=== PATIENT | male | born 1940 | race Caucasian/White ===

== ENCOUNTER 2017-08-01 08:33 | Outpatient (CLI) | payer MEDICARE ==
[2017-08-01 09:34] LABS: Anion Gap 10 mmol/L (10-20); BUN (Urea Nitrogen) 23 mg/dL (8.4-25.7); Calc. Creatinine Clearance 0 mL/min (70-130); Carbon Dioxide 31 mmol/L (23-31); Chloride 100 mmol/L (98-107); Estimated GFR-MDRD 44; Potassium 4.1 mmol/L (3.5-5.1); Sodium 137 mmol/L (136-145)
[2017-08-01 09:35] LABS: Calcium 9.8 mg/dL (7.8-10.44); Glucose 214 mg/dL (83-110)
--- NOTE | 2017-08-01 11:42 | CT ---
CT ANGIO CHEST WITH AND WITHOUT IV CONTRAST AND 3D POSTPROCESSING: Date: 08/01/17 HISTORY: Atrial fibrillation. FINDINGS/IMPRESSION: Please see truck engine technician's report for coronary and cardiac findings. There are vascular calcifications without evidence of aneurysmal dilatation of the thoracic aorta. No pericardial or pleural effusions are seen. The visualized lung lomeli are unremarkable. There is asc ites in the visualized portions of the abdomen. POS: JOSE
[2017-08-01] MEDS ORDERED: Iopamidol 370 76% 100 ML VIAL ONE (13:21)
== END 2017-08-01 08:34 | disposition home or self-care (01) ==
LOC: CT 08:33
PROVIDERS: ATTEND Internal Medicine Cardiovascular Disease
DX: I48.91 Unspecified atrial fibrillation (principal); I70.0 Atherosclerosis of aorta; R18.8 Other ascites
CPT/HCPCS: 36415; 71275; 80048

== ENCOUNTER 2017-08-05 10:41 | Day surgery (SDC) | payer MEDICARE ==
[2017-08-05 10:27] LABS: #Basophils 0.1 thou/uL (0.0-0.2); #Eosinphils 0.8 thou/uL (0.0-0.7); #Lymphocytes 1.8 thou/uL (1.20-3.40); #Monocytes 0.6 thou/uL (0.11-0.59); %Basophils 1.7 % (0.0-1.0); %Eosinophils 11.3 % (0.0-10.0); %Lymphocytes 24.8 % (21.0-51.0); %Monocytes 7.8 % (0.0-10.0); %Neutrophils 54.4 % (42.0-75.0); Hemoglobin 14.5 g/dL (14.0-18.0); Mean Corpuscular Hemoglobin 34.1 pg (27.0-31.0); Mean Platelet Volume 8.1 fL (7.4-10.4); Platelet Count 197 thou/uL (130-400); RBC Distribution Width 11.9 % (11.5-14.5); Red Blood Cell (RBC) Count 4.24 mill/uL (4.70-6.10); White Blood Cell (WBC) Count 7.4 thou/uL (4.8-10.8)
[2017-08-05 10:34] LABS: INR-International Normal Ratio 1.3; PTT 33.7 SEC (22.9-36.1); Prothrombin Time 16.1 SEC (12.0-14.7)
[2017-08-05 10:46] LABS: Anion Gap 16 mmol/L (10-20); BUN (Urea Nitrogen) 16 mg/dL (8.4-25.7); Calc. Creatinine Clearance 68 mL/min (70-130); Calcium 9.9 mg/dL (7.8-10.44); Carbon Dioxide 26 mmol/L (23-31); Chloride 102 mmol/L (98-107); Estimated GFR-MDRD 54; Glucose 164 mg/dL (83-110); Potassium 4.1 mmol/L (3.5-5.1); Sodium 140 mmol/L (136-145)
[2017-08-05] MEDS ORDERED: Heparin 10,000 UNITS/1 ML VIAL ONE ×2 (12:54→13:37)
[2017-08-05] MEDS ORDERED: Lidocaine 1% (PF) 30 ML VIAL ONE (13:07)
[2017-08-05] MEDS ORDERED: Phenylephrine HCL 10 MG/ML VIAL ONE (13:19)
[2017-08-05] MEDS ORDERED: Fentanyl 100 MCG/2 ML VIAL ONE ×2 (13:19→16:08)
[2017-08-05] MEDS ORDERED: Propofol 1,000 MG/100 ML VIAL IV ONE (13:19)
[2017-08-05] MEDS ORDERED: Furosemide 40 MG/4 ML VIAL ONE (13:37)
[2017-08-05] MEDS ORDERED: Protamine Sulfate 50 MG/5 ML VIAL ONE (13:37)
--- NOTE | 2017-08-05 13:37 | EKG ---
Test Reason : PREOP Blood Pressure : / mmHG Vent. Rate : 122 BPM Atrial Rate : 244 BPM P-R Int : 000 ms QRS Dur : 108 ms QT Int : 380 ms P-R-T Axes : 000 -55 147 degrees QTc Int : 541 ms Atrial tachycardia with 2:1 A-V conduction Left anterior fascicular block Anterolateral infarct , age undetermined Abnormal ECG Confirmed by CHAIM RAMOS ([id number]) on 08/05/2017 1:37:20 PM Referred By: LUCINA Confirmed By:CHAIM RAMOS
[2017-08-05] MEDS ORDERED: Glycopyrrolate 0.2 MG/ML 5 ML SYRINGE ONE (14:30)
[2017-08-05] MEDS ORDERED: Propofol 200 MG/20 ML VIAL ONE (14:30)
[2017-08-05] MEDS ORDERED: Heparin 30,000 units/30 ml VIAL ONE (14:30)
[2017-08-05] MEDS ORDERED: Isoproterenol 0.2 MG/1 ML AMP ONE (14:41)
[2017-08-05] MEDS ORDERED: Ondansetron HCl/PF 4 MG/2 ML Vial IVP PRN ×2 (15:46→15:48)
[2017-08-05] MEDS ORDERED: Promethazine HCl 25 MG/ML VIAL IM/IV PRN (15:46)
[2017-08-05] MEDS ORDERED: Non-Formulary Medication 1 EACH PO PRN (15:46)
[2017-08-05] MEDS ORDERED: Acetaminophen 325 MG TAB PO PRN (15:48)
[2017-08-05] MEDS ORDERED: diphenhydrAMINE 25 MG CAP PO PRN (15:48)
[2017-08-05] MEDS ORDERED: Temazepam 15 MG CAP PO PRN (15:48)
[2017-08-05] MEDS ORDERED: Bisacodyl 5 MG TAB PO PRN (15:48)
[2017-08-05] MEDS ORDERED: Mag-Al 1200 mg/1200 mg/30 ML UDCUP PO PRN (15:48)
[2017-08-05] MEDS ORDERED: traMADol HCl 50 MG TAB PO PRN (15:48)
[2017-08-05] MEDS ORDERED: Bisacodyl 10 MG SUPP PR PRN (15:48)
[2017-08-05] MEDS ORDERED: Nitroglycerin 0.4 MG TAB (25 Tab Bottle) SL PRN (15:48)
--- NOTE | 2017-08-05 16:38 | OP ---
ELECTROPHYSIOLOGY PROCEDURE NOTE DATE OF PROCEDURE: 08/05/2017 PROCEDURE PERFORMED: 1. Comprehensive EP testing with and without left atrial pacing and recording. 2. Transseptal catheterization x2. 3. Intracardiac echocardiography. 4. Three-dimensional mapping and ablation of atrial fibrillation and atrial flutter. 5. Three-dimensional mapping and ablation of atrial tachycardia. CIT[employer] LEAD: Hussein Mayo M.D. ASA CLASSIFICATION: III. ANESTHESIA: General endotracheal anesthesia per Anesthesiology. ADDITIONAL CARDIAC MEDICATIONS: Isoproterenol 5 mcg bolus. Total heparin given 24,000 units. Total protamine given 40 mg. ACUTE COMPLICATIONS: None. TOTAL RADIOFREQUENCY TIME: 21 minutes 47 seconds. TOTAL FLUOROSCOPY TIME: Zero. METHODS: After informed consent was obtained, the patient was taken to the EP lab in fasting state. Both groins were prepped and draped using ultrasound guidance. The right and left femoral veins wer e accessed and wires were inserted into the central venous system. The wires were used to place an 1 1 [place] sheath in the left groin and an 8 [place] sheath in the left groin and two 8 [place] sheaths i n the right groin. 8 [place] sheaths were then all replaced by long 8 [place] sheaths for catheter sta bility. An echo probe was placed in the left groin and advanced to the right atrium and the right ve ntricle for imaging. A circular and ablation catheter placed in right groin and advanced to the righ t atrium and the coronary sinus where a 3D geometry was obtained. A 20-pole catheter was placed in t he left groin and advanced up to the coronary sinus. The proximal end was in the joseph terminalis. The patient was in atrial flutter, pacing within the CTI area confirmed concealed entrainment. Cond uction morphology was consistent with clockwise atrial flutter. Ablation was delivered in this area terminating the flutter and a bidirectional block was confirmed. The patient had incessant atrial ec topy. Transseptal catheterization was performed on two occasions after heparinization. A 3D map was obtained of the left atrium using a port heiden and ablation catheter. Pulmonary veins were isolated at the level of the ostium of all veins. Ectopy remained and mapping showed that the atrial ectopy was coming from the roof of the left atrium just at the atrial ventricular groove, just on the septal jaiden e of the base of the left atrial appendage. Ablation in this area eliminated ectopy and the patient was non-inducible. At the conclusion of the procedure, catheters were withdrawn, sheaths were pulled . Hemostasis was achieved with suture and direct manual closure. RESULTS: 1. Baseline intervals: Flutter cycle length 255 milliseconds, QRS duration 115 milliseconds, QT int erval 320 milliseconds and HV interval 59 milliseconds. 2. Atrial function: The patient was in a clockwise isthmus dependent flutter, which was ablated. T he patient then had empiric vein isolation of the left pulmonary veins because of high risk of atrial fibrillation and had ectopy that was arising from the roof of the left atrium at the base. The left atrial appendage was ablated completely eliminating the ectopy. 3. Ablation details: A total of 21 minutes 47 seconds of RF were delivered with a [employer] Novoa open, irrigated ablation catheter to interrupt the cavotricuspid isthmus, to isolate all 4 pulmonary veins and to ablate the focal atrial tachycardia arising from the roof of the left atrium. IMPRESSION: Successful ablation of CTI flutter along with pulmonary vein antral isolation and an atr ial tachycardia from the left atrial roof. RECOMMENDATION: Oral anticoagulation for the next 3 months.
[2017-08-05 18:40] VITALS: BMI 32.9
[2017-08-05] MEDS: metFORMIN 500 MG TAB PO SCH (18:43)
[2017-08-05] MEDS: Apixaban 5 MG TAB PO SCH (20:09)
[2017-08-05] MEDS: Aspirin 81 mg Enteric Coated Tablet PO SCH (20:11)
[2017-08-05] MEDS: Gabapentin 400 MG CAP PO SCH (20:11)
[2017-08-05] MEDS ORDERED: Prevnar 13-Val Conj/PF 0.5 ML SYRINGE IM ONE (20:15)
[2017-08-06] MEDS ORDERED: Glimepiride 4 MG TAB PO SCH (08:00)
[2017-08-06] MEDS: Gabapentin 400 MG CAP PO SCH (08:16)
[2017-08-06] MEDS: metFORMIN 500 MG TAB PO SCH (08:16)
[2017-08-06] MEDS: Aspirin 81 mg Enteric Coated Tablet PO SCH (08:16)
[2017-08-06] MEDS: Apixaban 5 MG TAB PO SCH (08:17)
[2017-08-06] MEDS ORDERED: Triamterene/Hydrochlorothiazide 37.5 mg/25 mg Tablet PO SCH (09:00)
[2017-08-06] MEDS ORDERED: Ezetimibe 10 MG TAB PO SCH (09:00)
[2017-08-06] MEDS ORDERED: Lisinopril 10 MG TAB PO SCH (09:00)
[2017-08-06] MEDS ORDERED: Furosemide 20 MG TAB PO SCH ×2 (09:00→12:45)
[2017-08-06 11:11] VITALS: BP 122/91; TEMP 97.4
--- NOTE | 2017-08-06 22:29 | DIS ---
REFERRING PHYSICIAN: Cesar Flynn M.D. ADMITTING PROBLEMS: 1. Chronic systolic heart failure with ischemic cardiomyopathy. 2. Single chamber ICD in place. 3. Persistent atrial flutter, s/p CTI ablation and pulmonary vein isolation procedure by Dr. Mayo on 08/05/2017. HOSPITAL COURSE: Mr. Phelps was admitted after his right atrial flutter and pulmonary vein isolation procedure as noted above. He tolerated the procedure well. His typical atrial flutter was terminated with cavotricuspid isthmus ablation, but also additional pulmonary vein isolation was performed. Total 21 minutes of ablation delivered. He tolerated the procedure well, no complications noted. He remained stable overnight. Subsequent day, he is doing well. Minimal hesitation of his urination was noted, but his clearing up now. His post void residuals were less 200 mL. The patient continues on Lasix. PHYSICAL EXAMINATION: VITAL SIGNS: Reveals blood pressure of 120/91, heart rate 99, respiration 20, temperature 97.4 degrees Fahrenheit. The O2 sats are 96% on room air. The groin shows minimal bruising with no significant hematoma. NECK: Veins with hepatojugular reflux positivity only. CHEST: Coarse with no crackles. CARDIOVASCULAR: Heart sounds are regular to rate and rhythm. No murmur or gallop. PLAN: The patient will be discharged home in his usual medication regimen. We are also going to add Protonix 40 mg a day for 30 days, Lasix 40 mg daily for 3 days and as needed after and K-dur 20 mEq daily with lasix. They will then resume his usual Lasix regimen. Routine followup will be requested in 6 weeks. I spent about 45 minutes preparing this discharge note and examining the patient and answering their questions. ALEXEI
== END 2017-08-06 13:44 | disposition home or self-care (01) ==
LOC: CCL 10:41 → 2SW 18:20 → CCL 08-06 13:44
PROVIDERS: ATTEND Internal Medicine Cardiovascular Disease
PROC: 4A023FZ Measurement of Cardiac Rhythm, Percutaneous Approach (ICD-10-PCS; principal; 2017-08-05)
PROC: 02K83ZZ Map Conduction Mechanism, Percutaneous Approach (ICD-10-PCS; 2017-08-05)
DX: I48.4 Atypical atrial flutter (principal); I50.20 Unspecified systolic (congestive) heart failure; I42.9 Cardiomyopathy, unspecified
CPT/HCPCS: 76942; 80048; 85025; 85347 ×2; 85610; 85730; 90670; 93005; 93613; 93623; 93653; 96374; C1731; C1732 ×2; C1769; G0009; 90471; 93010; J1644; J1940; J2001; J2370; J2704; J2720; J3010

== ENCOUNTER 2020-10-15 15:52 | Inpatient (IN) | payer MEDICARE ==
[2020-10-15 16:38] LABS: #Basophils 0.1 thou/uL (0.0-0.2); #Eosinphils 0.3 thou/uL (0.0-0.7); #Lymphocytes 1.1 thou/uL (1.20-3.40); #Monocytes 0.6 thou/uL (0.11-0.59); #Neutrophils 4.1 thou/uL (1.40-6.50); %Basophils 1.3 % (0.0-1.0); %Eosinophils 5.1 % (0.0-10.0); %Lymphocytes 18.1 % (21.0-51.0); %Monocytes 9.8 % (0.0-10.0); %Neutrophils 65.8 % (42.0-75.0); Hemoglobin 10.2 g/dL (14.0-18.0); Mean Corpuscular HGB CONC 32.5 g/dL (32.0-36.0); Mean Corpuscular Hemoglobin 31.7 pg (27.0-31.0); Mean Corpuscular Volume 97.4 fL (78.0-98.0); Mean Platelet Volume 8.9 fL (7.4-10.4); Platelet Count 182 thou/uL (130-400); RBC Distribution Width 13.8 % (11.5-14.5); Red Blood Cell (RBC) Count 3.22 mill/uL (4.70-6.10); White Blood Cell (WBC) Count 6.2 thou/uL (4.8-10.8)
[2020-10-15 16:58] LABS: ALT (SGPT) 30 U/L (8-55); AST (SGOT) 43 U/L (5-34); Albumin 3.7 g/dL (3.4-4.8); Alkaline Phosphatase 185 U/L (40-110); Anion Gap 15 mmol/L (10-20); BUN (Urea Nitrogen) 30 mg/dL (8.4-25.7); Bilirubin, Total 1.3 mg/dL (0.2-1.2); Calc. Creatinine Clearance 0 mL/min (70-130); Calcium 9.5 mg/dL (7.8-10.44); Carbon Dioxide 28 mmol/L (23-31); Chloride 100 mmol/L (98-107); Globulin 3.1 g/dL (2.4-3.5); Glucose 165 mg/dL (83-110); Magnesium 1.7 mg/dL (1.6-2.6); Potassium 4.7 mmol/L (3.5-5.1); Protein, Total 6.8 g/dL (5.8-8.1); Sodium 138 mmol/L (136-145)
[2020-10-15 19:56] LABS: Bacteria/HPF None Seen HPF (None Seen); Bilirubin Negative (Negative); Blood, Urine Trace (Negative); Clarity Clear (Clear); Glucose, Urine (Dipstick) Normal (Negative); Ketone, Urine Negative (Negative); Leukocyte 25 Leu/uL (Negative); Nitrite Negative (Negative); Protein, Urine (Dipstick) 30 mg/dL (Neg-Trace); RBC/HPF 0-3 HPF (0-3); Specific Gravity, Urine 1.012 (1.002-1.036); Squamous Epithelial 0-3 HPF (0-3); Urobilinogen Normal mg/dL (Less than 2)
[2020-10-15] MEDS ORDERED: Furosemide 20 MG/2 ML VIAL ONE (20:01)
[2020-10-15] MEDS ORDERED: Furosemide 40 MG/4 ML VIAL ONE (20:01)
[2020-10-15 20:04] LABS: CKMB 3.1 ng/mL (0-6.6)
[2020-10-15 20:33] LABS: Troponin I 0.092 ng/mL (< 0.028)
[2020-10-15] MEDS ORDERED: Acetaminophen 325 MG TAB PO PRN (21:15)
[2020-10-15] MEDS ORDERED: HYDROcodone/Acetaminophen 5/325 mg Tablet PO PRN (21:15)
[2020-10-15] MEDS ORDERED: Ondansetron PF 4 MG/2 ML Vial IVP PRN (21:15)
[2020-10-15] MEDS ORDERED: Bisacodyl 5 MG TAB PO PRN (21:15)
[2020-10-15] MEDS ORDERED: hydrALAZINE 20 MG/ML VIAL SLOW IVP PRN (21:23)
[2020-10-15] MEDS ORDERED: Furosemide 100 MG/10 ML VIAL SLOW IVP SCH (21:45)
[2020-10-15 23:33] LABS: Troponin I 0.101 ng/mL (< 0.028)
[2020-10-15] MEDS ORDERED: Furosemide 100 MG/10 ML VIAL ONE (23:42)
[2020-10-16 01:02] LABS: SARS-CoV-2 PCR by NAA Not Detected (NotDetected)
[2020-10-16 01:41] LABS: Troponin I 0.095 ng/mL (< 0.028)
[2020-10-16 03:38] LABS: Creatinine, Urine 40.1 mg/dL (63-166)
[2020-10-16 04:35] LABS: #Basophils 0.1 thou/uL (0.0-0.2); #Eosinphils 0.4 thou/uL (0.0-0.7); #Lymphocytes 1.1 thou/uL (1.20-3.40); #Monocytes 0.6 thou/uL (0.11-0.59); #Neutrophils 4.1 thou/uL (1.40-6.50); %Basophils 1.1 % (0.0-1.0); %Eosinophils 6.5 % (0.0-10.0); %Lymphocytes 18.3 % (21.0-51.0); %Monocytes 8.9 % (0.0-10.0); %Neutrophils 65.2 % (42.0-75.0); Hemoglobin 10.2 g/dL (14.0-18.0); Mean Corpuscular HGB CONC 32.9 g/dL (32.0-36.0); Mean Corpuscular Volume 97.2 fL (78.0-98.0); Mean Platelet Volume 9.1 fL (7.4-10.4); Platelet Count 182 thou/uL (130-400); RBC Distribution Width 13.8 % (11.5-14.5); Red Blood Cell (RBC) Count 3.18 mill/uL (4.70-6.10); White Blood Cell (WBC) Count 6.3 thou/uL (4.8-10.8)
[2020-10-16 04:57] LABS: Albumin 3.6 g/dL (3.4-4.8); Anion Gap 15 mmol/L (10-20); BUN (Urea Nitrogen) 35 mg/dL (8.4-25.7); BUN/Creatinine Ratio 12.64; Calc. Creatinine Clearance 17 mL/min (70-130); Calcium 9.8 mg/dL (7.8-10.44); Carbon Dioxide 28 mmol/L (23-31); Chloride 99 mmol/L (98-107); Glucose 209 mg/dL (83-110); Phosphorus 3.4 mg/dL (2.3-4.7); Potassium 4.6 mmol/L (3.5-5.1); Sodium 137 mmol/L (136-145); Uric Acid 8.8 mg/dL (3.5-7.2)
[2020-10-16] MEDS: Furosemide 100 MG/10 ML VIAL SLOW IVP SCH ×2 (05:42→15:32)
[2020-10-16 07:40] LABS: Protein, Urine Random Quant 41 mg/dL (1-14); Urea Nitrogen, Random Urine 630 mg/dl
[2020-10-16] MEDS: Gabapentin 300 MG CAP PO SCH (08:53)
[2020-10-16] MEDS: Aspirin 81 mg Enteric Coated Tablet PO SCH ×2 (08:53→20:58)
[2020-10-16] MEDS: Apixaban 2.5 MG TAB PO SCH ×2 (08:53→20:58)
[2020-10-16] MEDS ORDERED: Dextrose 5% in Water 1,000 ML IV PRN (12:57)
[2020-10-16] MEDS ORDERED: Dextrose 50% Abboject 50 ML SYRINGE SLOW IVP PRN (12:57)
[2020-10-16 14:45] LABS: INR-International Normal Ratio 1.6; Prothrombin Time 19.1 sec (12.0-14.7)
[2020-10-16 14:46] LABS: PTT 37.3 sec (22.9-36.1)
[2020-10-16] MEDS: DOBUTamine 500 mg/250 ml 250 ML IVPB SCH (15:43)
[2020-10-16] MEDS: HumaLOG 300 UNITS/3 ML VIAL SC PRN (18:23)
[2020-10-17] MEDS: Furosemide 100 MG/10 ML VIAL SLOW IVP SCH ×2 (05:50→14:14)
[2020-10-17 08:22] LABS: Albumin 3.8 g/dL (3.4-4.8); Anion Gap 14 mmol/L (10-20); BUN (Urea Nitrogen) 30 mg/dL (8.4-25.7); BUN/Creatinine Ratio 12.45; Calc. Creatinine Clearance 31 mL/min (70-130); Calcium 9.6 mg/dL (7.8-10.44); Carbon Dioxide 31 mmol/L (23-31); Chloride 97 mmol/L (98-107); Glucose 150 mg/dL (83-110); Phosphorus 3.2 mg/dL (2.3-4.7); Potassium 3.6 mmol/L (3.5-5.1); Sodium 138 mmol/L (136-145)
[2020-10-17 08:23] LABS: Iron 44 ug/dL (65-175); Iron Binding Capacity, Total 303 mcg/dL (261-462)
[2020-10-17] MEDS: Aspirin 81 mg Enteric Coated Tablet PO SCH ×2 (08:34→21:27)
[2020-10-17] MEDS: Apixaban 2.5 MG TAB PO SCH ×2 (08:34→21:27)
[2020-10-17] MEDS: Gabapentin 300 MG CAP PO SCH (08:34)
[2020-10-17] MEDS ORDERED: Spironolactone 25 MG TAB PO SCH (11:15)
[2020-10-17] MEDS: DOBUTamine 500 mg/250 ml 250 ML IVPB SCH (11:51)
[2020-10-17] MEDS: HumaLOG 300 UNITS/3 ML VIAL SC PRN (17:44)
[2020-10-17] MEDS ORDERED: HumaLOG 300 UNITS/3 ML VIAL SC PRN (22:18)
[2020-10-18 04:58] LABS: Albumin 3.7 g/dL (3.4-4.8); Anion Gap 16 mmol/L (10-20); BUN (Urea Nitrogen) 26 mg/dL (8.4-25.7); BUN/Creatinine Ratio 11.82; Calc. Creatinine Clearance 34 mL/min (70-130); Calcium 9.5 mg/dL (7.8-10.44); Carbon Dioxide 28 mmol/L (23-31); Chloride 98 mmol/L (98-107); Glucose 136 mg/dL (83-110); Phosphorus 3.2 mg/dL (2.3-4.7); Potassium 3.6 mmol/L (3.5-5.1); Sodium 138 mmol/L (136-145)
[2020-10-18] MEDS: Furosemide 100 MG/10 ML VIAL SLOW IVP SCH ×2 (06:45→15:44)
[2020-10-18] MEDS: DOBUTamine 500 mg/250 ml 250 ML IVPB SCH (06:46)
[2020-10-18] MEDS: Gabapentin 300 MG CAP PO SCH (09:19)
[2020-10-18] MEDS: Spironolactone 25 MG TAB PO SCH (09:19)
[2020-10-18] MEDS: Apixaban 2.5 MG TAB PO SCH ×2 (09:20→20:20)
[2020-10-18] MEDS: Aspirin 81 mg Enteric Coated Tablet PO SCH ×2 (09:20→20:20)
[2020-10-18] MEDS: HumaLOG 300 UNITS/3 ML VIAL SC PRN ×2 (11:06→17:38)
[2020-10-19] MEDS: DOBUTamine 500 mg/250 ml 250 ML IVPB SCH ×2 (00:35→20:48)
[2020-10-19 05:04] LABS: Albumin 3.4 g/dL (3.4-4.8); Anion Gap 18 mmol/L (10-20); BUN (Urea Nitrogen) 20 mg/dL (8.4-25.7); BUN/Creatinine Ratio 10.31; Calc. Creatinine Clearance 41 mL/min (70-130); Calcium 9.5 mg/dL (7.8-10.44); Carbon Dioxide 21 mmol/L (23-31); Chloride 99 mmol/L (98-107); Glucose 158 mg/dL (83-110); Phosphorus 3.2 mg/dL (2.3-4.7); Potassium 4.1 mmol/L (3.5-5.1); Sodium 134 mmol/L (136-145)
[2020-10-19] MEDS: Furosemide 100 MG/10 ML VIAL SLOW IVP SCH ×2 (06:25→14:53)
[2020-10-19 06:36] LABS: #Eosinphils 0.4 thou/uL (0.0-0.7); #Lymphocytes 1.3 thou/uL (1.20-3.40); #Monocytes 0.6 thou/uL (0.11-0.59); #Neutrophils 4.2 thou/uL (1.40-6.50); %Basophils 0.8 % (0.0-1.0); %Eosinophils 5.7 % (0.0-10.0); %Lymphocytes 19.6 % (21.0-51.0); %Monocytes 9.8 % (0.0-10.0); %Neutrophils 64.1 % (42.0-75.0); Hemoglobin 9.9 g/dL (14.0-18.0); Mean Corpuscular HGB CONC 33.1 g/dL (32.0-36.0); Mean Corpuscular Hemoglobin 31.8 pg (27.0-31.0); Mean Corpuscular Volume 96.3 fL (78.0-98.0); Mean Platelet Volume 8.3 fL (7.4-10.4); Platelet Count 189 thou/uL (130-400); RBC Distribution Width 13.9 % (11.5-14.5); Red Blood Cell (RBC) Count 3.12 mill/uL (4.70-6.10); White Blood Cell (WBC) Count 6.5 thou/uL (4.8-10.8)
[2020-10-19] MEDS: Glimepiride 1 MG TAB PO SCH (08:48)
[2020-10-19] MEDS: Gabapentin 300 MG CAP PO SCH (08:49)
[2020-10-19] MEDS: Ezetimibe 10 MG TAB PO SCH (08:49)
[2020-10-19] MEDS: Enoxaparin Sodium 100 MG/ML SYRINGE SC SCH ×2 (08:50→20:49)
[2020-10-19] MEDS: Spironolactone 25 MG TAB PO SCH (08:50)
[2020-10-19] MEDS: Aspirin 81 mg Enteric Coated Tablet PO SCH ×2 (08:50→20:49)
[2020-10-19] MEDS ORDERED: Metolazone 5 MG TAB PO SCH (10:15)
[2020-10-20 04:59] LABS: #Eosinphils 0.4 thou/uL (0.0-0.7); #Lymphocytes 1.3 thou/uL (1.20-3.40); #Monocytes 0.7 thou/uL (0.11-0.59); #Neutrophils 4.5 thou/uL (1.40-6.50); %Basophils 0.5 % (0.0-1.0); %Lymphocytes 18.8 % (21.0-51.0); %Monocytes 9.9 % (0.0-10.0); %Neutrophils 64.7 % (42.0-75.0); Hemoglobin 10.2 g/dL (14.0-18.0); Mean Corpuscular HGB CONC 32.9 g/dL (32.0-36.0); Mean Corpuscular Hemoglobin 31.7 pg (27.0-31.0); Mean Corpuscular Volume 96.4 fL (78.0-98.0); Mean Platelet Volume 8.6 fL (7.4-10.4); Platelet Count 185 thou/uL (130-400); Red Blood Cell (RBC) Count 3.23 mill/uL (4.70-6.10)
[2020-10-20 05:20] LABS: Albumin 3.9 g/dL (3.4-4.8); Anion Gap 15 mmol/L (10-20); BUN (Urea Nitrogen) 21 mg/dL (8.4-25.7); Calc. Creatinine Clearance 39 mL/min (70-130); Calcium 9.8 mg/dL (7.8-10.44); Carbon Dioxide 30 mmol/L (23-31); Chloride 94 mmol/L (98-107); Glucose 125 mg/dL (83-110); Phosphorus 3.3 mg/dL (2.3-4.7); Potassium 3.8 mmol/L (3.5-5.1); Sodium 135 mmol/L (136-145)
[2020-10-20] MEDS: Furosemide 100 MG/10 ML VIAL SLOW IVP SCH (05:49)
[2020-10-20] MEDS: Gabapentin 300 MG CAP PO SCH (08:42)
[2020-10-20] MEDS: Enoxaparin Sodium 100 MG/ML SYRINGE SC SCH (08:42)
[2020-10-20] MEDS: Glimepiride 1 MG TAB PO SCH (08:42)
[2020-10-20] MEDS: Ezetimibe 10 MG TAB PO SCH (08:42)
[2020-10-20] MEDS: Aspirin 81 mg Enteric Coated Tablet PO SCH (08:43)
[2020-10-20] MEDS: Spironolactone 25 MG TAB PO SCH ×2 (08:46)
[2020-10-20] MEDS ORDERED: Communication Order-Pharmacy FS SCH (11:45)
[2020-10-20] MEDS ORDERED: Sodium Chloride 0.9% 1,000 ML IV SCH (15:00)
[2020-10-20] MEDS: DOBUTamine 500 mg/250 ml 250 ML IVPB SCH (15:28)
[2020-10-20] MEDS: Ferrous Sulfate 325 MG TAB PO SCH (16:37)
[2020-10-20] MEDS: HumaLOG 300 UNITS/3 ML VIAL SC PRN (17:58)
[2020-10-21] MEDS: Aspirin 81 mg Enteric Coated Tablet PO SCH (05:46)
[2020-10-21] MEDS: Gabapentin 300 MG CAP PO SCH (05:46)
[2020-10-21] MEDS: Ferrous Sulfate 325 MG TAB PO SCH ×2 (05:46→16:55)
[2020-10-21] MEDS: Spironolactone 25 MG TAB PO SCH (05:47)
[2020-10-21] MEDS: Ezetimibe 10 MG TAB PO SCH (05:48)
[2020-10-21] MEDS: Sodium Chloride 0.9% 1,000 ML IV SCH ×2 (05:48→16:30)
[2020-10-21 06:00] LABS: Albumin 3.9 g/dL (3.4-4.8); Anion Gap 16 mmol/L (10-20); BUN (Urea Nitrogen) 22 mg/dL (8.4-25.7); BUN/Creatinine Ratio 10.89; Calc. Creatinine Clearance 39 mL/min (70-130); Calcium 9.8 mg/dL (7.8-10.44); Carbon Dioxide 30 mmol/L (23-31); Chloride 92 mmol/L (98-107); Glucose 90 mg/dL (83-110); Phosphorus 3.3 mg/dL (2.3-4.7); Potassium 3.5 mmol/L (3.5-5.1); Sodium 134 mmol/L (136-145)
[2020-10-21 06:39] LABS: ALT (SGPT) 34 U/L (8-55); AST (SGOT) 41 U/L (5-34); Albumin 3.9 g/dL (3.4-4.8); Alkaline Phosphatase 165 U/L (40-110); Bilirubin, Direct 1.2 mg/dL (0.1-0.3); Bilirubin, Total 2.1 mg/dL (0.2-1.2); Protein, Total 7.2 g/dL (5.8-8.1)
[2020-10-21] MEDS: Enoxaparin Sodium 100 MG/ML SYRINGE SC SCH (07:24)
[2020-10-21] MEDS: Glimepiride 1 MG TAB PO SCH ×2 (07:24→16:26)
[2020-10-21] MEDS: DOBUTamine 500 mg/250 ml 250 ML IVPB SCH (11:39)
[2020-10-21] MEDS ORDERED: Lidocaine 1% (PF) 30 ML VIAL ONE (11:54)
[2020-10-22] MEDS: Sodium Chloride 0.9% 1,000 ML IV SCH (02:33)
[2020-10-22 05:00] LABS: INR-International Normal Ratio 1.2; Prothrombin Time 15.4 sec (12.0-14.7)
[2020-10-22 05:06] LABS: Anion Gap 19 mmol/L (10-20); BUN (Urea Nitrogen) 27 mg/dL (8.4-25.7); Calc. Creatinine Clearance 38 mL/min (70-130); Calcium 9.6 mg/dL (7.8-10.44); Carbon Dioxide 24 mmol/L (23-31); Chloride 95 mmol/L (98-107); Glucose 177 mg/dL (83-110); Potassium 3.8 mmol/L (3.5-5.1); Sodium 134 mmol/L (136-145)
[2020-10-22 05:11] LABS: ALT (SGPT) 37 U/L (8-55); AST (SGOT) 50 U/L (5-34); Albumin 3.7 g/dL (3.4-4.8); Alkaline Phosphatase 173 U/L (40-110); Bilirubin, Direct 1.2 mg/dL (0.1-0.3); Bilirubin, Total 2.1 mg/dL (0.2-1.2); Protein, Total 6.7 g/dL (5.8-8.1)
[2020-10-22] MEDS: DOBUTamine 500 mg/250 ml 250 ML IVPB SCH ×2 (06:10→20:56)
[2020-10-22] MEDS: Glimepiride 1 MG TAB PO SCH (08:57)
[2020-10-22] MEDS: Ferrous Sulfate 325 MG TAB PO SCH ×2 (08:57→17:52)
[2020-10-22] MEDS: Ezetimibe 10 MG TAB PO SCH (08:58)
[2020-10-22] MEDS: Aspirin 81 mg Enteric Coated Tablet PO SCH (08:58)
[2020-10-22] MEDS: Enoxaparin Sodium 100 MG/ML SYRINGE SC SCH (08:58)
[2020-10-22] MEDS: Gabapentin 300 MG CAP PO SCH (08:58)
[2020-10-22] MEDS: Spironolactone 25 MG TAB PO SCH (08:59)
[2020-10-23 05:05] LABS: Iron 71 ug/dL (65-175); Iron Binding Capacity, Total 323 mcg/dL (261-462)
[2020-10-23 05:23] LABS: Ferritin 202.42 ng/mL (22-322)
[2020-10-23 05:37] LABS: HBCM Index 0.06 S/CO (0-0.79); HBSAg Index 0.13 S/CO (0-0.99); Hep A IgM AB Non-Reactive (NonReactive); Hep A IgM S/CO 0.08 S/CO (0-0.79); Hep B Surf Ag Non-Reactive S/CO (NonReactive); Hep C IgG Ab Non-Reactive (NonReactive); Hep C Index 0.07 S/CO (0-0.79); Hepatitis B Core IgM Abs Non-Reactive (NonReactive)
[2020-10-23 08:41] LABS: ALT (SGPT) 42 U/L (8-55); AST (SGOT) 47 U/L (5-34); Albumin 4.1 g/dL (3.4-4.8); Alkaline Phosphatase 177 U/L (40-110); Anion Gap 18 mmol/L (10-20); BUN (Urea Nitrogen) 28 mg/dL (8.4-25.7); Bilirubin, Total 2.3 mg/dL (0.2-1.2); Calc. Creatinine Clearance 37 mL/min (70-130); Calcium 9.9 mg/dL (7.8-10.44); Carbon Dioxide 26 mmol/L (23-31); Chloride 96 mmol/L (98-107); Glucose 176 mg/dL (83-110); Protein, Total 7.1 g/dL (5.8-8.1); Sodium 136 mmol/L (136-145)
[2020-10-23] MEDS: Gabapentin 300 MG CAP PO SCH (09:05)
[2020-10-23] MEDS: Aspirin 81 mg Enteric Coated Tablet PO SCH (09:06)
[2020-10-23] MEDS: Glimepiride 1 MG TAB PO SCH (09:06)
[2020-10-23] MEDS: Spironolactone 25 MG TAB PO SCH (09:06)
[2020-10-23] MEDS: Enoxaparin Sodium 100 MG/ML SYRINGE SC SCH (09:07)
[2020-10-23] MEDS: Ferrous Sulfate 325 MG TAB PO SCH ×2 (09:07→17:22)
[2020-10-23] MEDS: Ezetimibe 10 MG TAB PO SCH (09:07)
[2020-10-23] MEDS ORDERED: Sodium Bicarbonate 2.5 MEQ/5 ML VIAL ONE (10:11)
[2020-10-23] MEDS ORDERED: Lidocaine 1% PF 5 ML VIAL ONE (10:11)
[2020-10-23 11:38] VITALS: BMI 29.2
[2020-10-23 12:15] LABS: RBC Count-Automated (BF) 611 /cu.mm; WBC/Nucleated-Auto (BF) 269 uL
[2020-10-23 12:28] LABS: BF Color Yellow; Body Fluid Source Ascites Body Fluid; Clarity Hazy (Clear); Tube # EDTA
[2020-10-23 12:55] LABS: BF Segmented Neutrophils 10 %; Cell Count Non Hematic 68 %; Lymphocytes 21 %
[2020-10-23] MEDS: DOBUTamine 500 mg/250 ml 250 ML IVPB SCH (19:17)
[2020-10-24 05:01] LABS: ALT (SGPT) 38 U/L (8-55); AST (SGOT) 45 U/L (5-34); Albumin 3.5 g/dL (3.4-4.8); Alkaline Phosphatase 157 U/L (40-110); Anion Gap 12 mmol/L (10-20); BUN (Urea Nitrogen) 31 mg/dL (8.4-25.7); Bilirubin, Total 1.9 mg/dL (0.2-1.2); Calc. Creatinine Clearance 38 mL/min (70-130); Calcium 9.8 mg/dL (7.8-10.44); Carbon Dioxide 29 mmol/L (23-31); Chloride 100 mmol/L (98-107); Glucose 141 mg/dL (83-110); Potassium 3.7 mmol/L (3.5-5.1); Protein, Total 6.5 g/dL (5.8-8.1); Sodium 137 mmol/L (136-145)
[2020-10-24] MEDS: Spironolactone 25 MG TAB PO SCH (09:26)
[2020-10-24] MEDS: Enoxaparin Sodium 100 MG/ML SYRINGE SC SCH (09:26)
[2020-10-24] MEDS: Glimepiride 1 MG TAB PO SCH (09:26)
[2020-10-24] MEDS: Aspirin 81 mg Enteric Coated Tablet PO SCH (09:26)
[2020-10-24] MEDS: Ferrous Sulfate 325 MG TAB PO SCH ×2 (09:26→17:56)
[2020-10-24] MEDS: Gabapentin 300 MG CAP PO SCH (09:26)
[2020-10-24] MEDS: Ezetimibe 10 MG TAB PO SCH (09:26)
[2020-10-24 15:12] LABS: SARS-CoV-2 NAA Rapid Test Not Detected (NotDetected)
[2020-10-24 16:36] LABS: EliA Vaculitis New Method **** NEW METHOD ****; Mitochondrial Ab 1.2 U/mL (<4 Negative)
[2020-10-24 20:15] VITALS: BP 125/58; TEMP 97.6
[2020-10-25 16:36] LABS: Smooth Muscle Total ABS 8 Units (0-19)
[2020-10-29 14:14] LABS: Alpha-1-Antitrypsin 205 mg/dL (101-187)
== END 2020-10-24 23:05 | disposition short-term general hospital (02) | DRG 286 ==
LOC: ERS 15:52 → ERHOLD 20:01 → 2NO 10-16 01:56
PROVIDERS: ADMIT Internal Medicine; ATTEND Internal Medicine
PROC: 4A023N7 Measurement of Cardiac Sampling and Pressure, Left Heart, Percutaneous Approach (ICD-10-PCS; 2020-10-15)
PROC: B2111ZZ Fluoroscopy of Multiple Coronary Arteries using Low Osmolar Contrast (ICD-10-PCS; 2020-10-15)
PROC: 0W9G3ZZ Drainage of Peritoneal Cavity, Percutaneous Approach (ICD-10-PCS; principal; 2020-10-23)
DX: I13.0 Hypertensive heart and chronic kidney disease with heart failure and stage 1 through stage 4 chronic kidney disease, or unspecified chronic kidney disease (principal); I50.23 Acute on chronic systolic (congestive) heart failure; N17.9 Acute kidney failure, unspecified; R18.8 Other ascites; I48.92 Unspecified atrial flutter; I25.10 Atherosclerotic heart disease of native coronary artery without angina pectoris; E11.22 Type 2 diabetes mellitus with diabetic chronic kidney disease; I25.5 Ischemic cardiomyopathy; D63.1 Anemia in chronic kidney disease; I48.0 Paroxysmal atrial fibrillation; K74.60 Unspecified cirrhosis of liver; N18.30 Chronic kidney disease, stage 3 unspecified; N28.1 Cyst of kidney, acquired; Z95.1 Presence of aortocoronary bypass graft; Z79.01 Long term (current) use of anticoagulants; Z95.2 Presence of prosthetic heart valve; Z79.82 Long term (current) use of aspirin; Z79.84 Long term (current) use of oral hypoglycemic drugs; Z95.5 Presence of coronary angioplasty implant and graft; Z95.810 Presence of automatic (implantable) cardiac defibrillator
CPT/HCPCS: 36415; 36416; 49083; 71045; 76705; 76770; 76942; 80048; 80053; 80069; 80074; 80076; 81003; 81015; 82042; 82103; 82104; 82105; 82550; 82553; 82570; 82728; 83516; 83540; 83550; 83735; 83880; 84156; 84157; 84300; 84484; 84540; 84550; 85025; 85060; 85520; 85610; 85730; 87635; 89051; 93005; 93306; 93458; 93459; 93798; 94760; 96374; 97139; J1250; J1650; J1940; J2001; U0002; U0003; U0005